=== PATIENT | female | born 2000 | race Caucasian/White ===

== ENCOUNTER 2024-08-20 23:11 | Emergency (ER) | payer SELFPAY ==
[2024-08-20] MEDS ORDERED: Morphine 4 MG/ML VIAL ONE (23:29)
[2024-08-20] MEDS ORDERED: Ondansetron PF 4 MG/2 ML Vial ONE (23:29)
[2024-08-20] MEDS ORDERED: Ketorolac Tromethamine 30 MG (1 mL) VIAL ONE (23:37)
[2024-08-20 23:49] LABS: #Basophils 0.08 10x3/uL (0.0-0.2); #Eosinophils 0.12 10x3/uL (0.0-0.5); #Neutrophils 4.84 10x3/uL (1.5-8.4); %Basophils 0.9 % (0.0-2.0); %Eosinophils 1.4 % (0.0-6.0); %Monocytes 9.1 % (0.0-10.0); %Neutrophils 55.4 % (40.0-75.0); Hemoglobin 12.1 g/dL (12.0-15.5); Mean Corpuscular HGB CONC 33.6 g/dL (32.0-36.0); Mean Corpuscular Volume 89.3 fL (81.6-98.3); Mean Platelet Volume 11.1 fL (7.4-10.4); Platelet Count 287 10x3/uL (150-450); RBC Distribution Width 12.4 % (11.5-14.5); Red Blood Cell (RBC) Count 4.03 10x6/uL (3.90-5.03); White Blood Cell (WBC) Count 8.8 10x3/uL (3.5-10.5)
[2024-08-21 00:02] LABS: ALT (SGPT) 10 U/L (8-55); AST (SGOT) 13 U/L (5-34); Albumin 3.8 g/dL (3.5-5.0); Alkaline Phosphatase 47 U/L (40-110); Anion Gap 14 mmol/L (10-20); BUN (Urea Nitrogen) 13 mg/dL (7.0-18.7); Bilirubin, Total 0.2 mg/dL (0.2-1.2); Calc. Creatinine Clearance 0 mL/min (70-130); Calcium 8.9 mg/dL (7.8-10.44); Carbon Dioxide 20 mmol/L (22-29); Chloride 109 mmol/L (98-107); Estimated GFR 117; Globulin 3.3 g/dL (2.4-3.5); Glucose 103 mg/dL (70-105); Lipase 17 U/L (8-78); Potassium 3.7 mmol/L (3.5-5.1); Protein, Total 7.1 g/dL (6.0-8.3); Sodium 139 mmol/L (136-145)
[2024-08-21 00:24] LABS: Bilirubin Neg (Negative); Blood, Urine 10 (Negative); Glucose, Urine (Dipstick) Normal (Negative); Ketone, Urine Negative (Negative); Leukocyte Negative (Negative); Nitrite Negative (Negative); Protein, Urine (Dipstick) Negative (Neg-Trace); pH, Urine 6.5 (5.0-9.0)
[2024-08-21 00:25] LABS: Clarity Hazy (Clear); Pregnancy Test - Urine (BHCG) Negative (Negative); Pregu Control Background? CLEAR/WHITE (CLR/WHITE); Pregu Control Bar Appear? YES (CONTROL BAR)
[2024-08-21 00:32] LABS: CAUTI Indications for Culture Pelvic or flank pain; RBC/HPF 0-3 HPF (0-3); WBC/HPF 0-3 HPF (0-3)
[2024-08-21 00:33] LABS: Bacteria/HPF 1+ HPF (None Seen)
[2024-08-21 00:34] LABS: Urine Culture Reflex No No
== END 2024-08-21 01:40 | disposition home or self-care (01) ==
LOC: CSHERS 23:11
DX: K80.20 Calculus of gallbladder without cholecystitis without obstruction (principal); F17.290 Nicotine dependence, other tobacco product, uncomplicated
CPT/HCPCS: 76705; 80053; 81001; 81025; 83690; 85025; 96374; 96375; J1885; J2272; J2405